=== PATIENT | male | born 1995 | race Caucasian/White ===

== ENCOUNTER 2018-05-22 09:18 | Emergency (ER) | payer SELFPAY ==
[~2018-05-22] VITALS: Ht 182.9 cm; Wt 90.0 kg
--- NOTE | 2018-05-22 09:41 | NUR ---
PT BIB [facility] APPARENTLY PT WAS IN AN APARTMENT GOING THROUGH STUFF AND HALLUCINATING. APARTMENT NOT PTS HOME BUT THE INDIVIDUALS KNOW HIM. PT STATES HE DRANK ALCOHOL, DID "BLOW" AND 10 HITS OF ACID LAST NIGHT. PT ALERT X3 BUT KEEPING LAUGHING AND LAUGHING. PT COOPERATIVE. PLACED ON MONITOR GIVEN WATER.
[2018-05-22 10:20] VITALS: BP 138/86
--- NOTE | 2018-05-22 10:21 | NUR ---
PT CALM AND COOPERATIVE. NO HALLUCINATIONS NOTED. PT AMBULATED DOWN HALLWAY. VERBALIZED INSTRUCTIONS. MD AWARE AND TO ASSESS PT.
== END 2018-05-22 11:05 | disposition home or self-care (01) ==
LOC: ED 11:00
DX: F16.129 Hallucinogen abuse with intoxication, unspecified (principal)
CPT/HCPCS: 99283